=== PATIENT | female | born 1985 | race Caucasian/White ===

== ENCOUNTER 2024-04-08 08:38 | Outpatient (CLI) | payer OTHER, SELFPAY ==
[2024-04-11 21:10] LABS: HPV Source Cervical; HPV, High Risk by TMA Detected
[2024-04-12 14:45] LABS: HPV Genotype 16 by TMA Not Detected; HPV Genotype 18/45 by TMA Detected; HPVG Source Cervical
== END 2024-04-08 08:39 | disposition home or self-care (01) ==
PROVIDERS: Visit Provider Obstetrics & Gynecology
DX: Z12.4 Encounter for screening for malignant neoplasm of cervix (principal); N92.0 Excessive and frequent menstruation with regular cycle
CPT/HCPCS: 84443; 87624; 87625; 88141; 88142

== ENCOUNTER 2024-06-12 07:08 | Outpatient (CLI) | payer OTHER, SELFPAY ==
--- NOTE | 2024-06-12 07:15 | CRLHL7_ITS ---
For Patients: As a result of the Century Cures Act, medical imaging exams and procedure reports are released immediately into your electronic medical record. You may view this report before your referring provider. If you have questions, please contact your health care provider. INDICATION: Excessive and frequent menstruation COMPARISON: 12/06/2018 TECHNIQUE: 2D zarco scale and color Doppler images were acquired of the pelvis using a transabdominal and transvaginal approach. FINDINGS: Sonographic images demonstrate a normal size and smooth outer contour of the uterus. Uterus measures 9.7 cm in length by 4.6 cm in AP diameter by 7.5 cm in transverse dimension. The myometrium has a normal uniform echotexture. The endometrial lining appears normal and measures 6 mm in composite thickness. The right ovary measures 4.0 x 2.3 x 3.1 cm in size and the left ovary measures 3.0 x 1.2 x 1.6 cm. The ovaries demonstrate normal arterial and venous blood flow on color Doppler analysis. Trace pelvic free fluid noted. IMPRESSION: Endometrial thickness 6 millimeters. No endometrial fluid. No uterine fibroid. Dictated by Timmy Cueva MD @ 06/12/2024 1:05:19 PM (Electronically Signed)
== END 2024-06-12 07:09 | disposition home or self-care (01) ==
LOC: US 07:08
PROVIDERS: Visit Provider Obstetrics & Gynecology
DX: N92.0 Excessive and frequent menstruation with regular cycle (principal); R93.89 Abnormal findings on diagnostic imaging of other specified body structures
CPT/HCPCS: 76830; 76856; 93976